=== PATIENT | male | born 1950 | race Caucasian/White ===

== ENCOUNTER 2019-03-04 06:23 | Day surgery (SDC) | payer MEDICARE, BC ==
[2019-03-03 12:58] VITALS: BMI 27.1
[2019-03-04] MEDS ORDERED: Midazolam HCl 2 mg/2 ml Vial ONE (06:44)
[2019-03-04] MEDS ORDERED: Lidocaine 1% (PF) 30 ML VIAL ONE (06:44)
[2019-03-04 06:59] LABS: #Basophils 0.1 thou/uL (0.0-0.2); #Eosinphils 0.2 thou/uL (0.0-0.7); #Monocytes 0.7 thou/uL (0.11-0.59); #Neutrophils 3.2 thou/uL (1.40-6.50); %Eosinophils 3.8 % (0.0-10.0); %Lymphocytes 32.2 % (21.0-51.0); Hemoglobin 15.9 g/dL (14.0-18.0); Mean Corpuscular HGB CONC 35.7 g/dL (32.0-36.0); Mean Corpuscular Hemoglobin 30.8 pg (27.0-31.0); Mean Corpuscular Volume 86.2 fL (78.0-98.0); Mean Platelet Volume 6.6 fL (7.4-10.4); Platelet Count 277 thou/uL (130-400); RBC Distribution Width 11.6 % (11.5-14.5); Red Blood Cell (RBC) Count 5.18 mill/uL (4.70-6.10); White Blood Cell (WBC) Count 6.1 thou/uL (4.8-10.8)
[2019-03-04] MEDS ORDERED: Diazepam 5 MG TAB ONE (07:15)
[2019-03-04] MEDS ORDERED: Diazepam 5 MG TAB PO SCH (07:30)
[2019-03-04] MEDS ORDERED: Sodium Chloride 0.9% 1,000 ML IV SCH (07:30)
--- NOTE | 2019-03-04 08:16 | RAD ---
2 view chest: 03/04/2019 COMPARISON: None HISTORY: Preoperative patient FINDINGS: There is a small nodular density in the mid right lung zone measuring 5-6 mm, suggesting a granuloma. No pneumothorax or pleural fluid. No focal consolidation or alveolar edema. IMPRESSION: No acute findings.
[2019-03-04] MEDS ORDERED: Iopamidol 370 76% 100 ML VIAL ONE (15:08)
--- NOTE | 2019-03-04 19:22 | DIS ---
DATE OF ADMISSION: 03/04/2019 DATE OF DISCHARGE: 03/04/2019 DISCHARGE DIAGNOSES: 1. Coronary artery disease. 2. Dyslipidemia. HISTORY: This is a pleasant 68-year-old gentleman who presents for evaluation of an abnormal stress test. The patient has no known cardiac history. He has a history of intolerance to lipid-lowering medication. The patient underwent a routine exercise treadmill test. He was noted to have significant ST depression and sent for further evaluation. The patient denies having any type of chest discomfort. HOSPITAL COURSE: On 03/03/2019, the patient underwent a left heart catheterization. He was found to have normal left ventricular systolic function, estimated ejection of 55% to 60%. The left main artery had a 40% stenosis. The left anterior descending artery had a 75% proximal stenosis. The left circumflex artery had a 90% mid stenosis. Right coronary artery is 70% proximal stenosis and a 90% mid stenosis. The patient underwent a consultation by Cardiovascular Surgery. It was recommended the patient to undergo coronary artery bypass graft surgery next week. The patient was discharged in stable condition. He has been told to avoid significant physical exertion. The patient will be treated with aspirin. He has also been treated with Repatha for his marked dyslipidemia. DISCHARGE MEDICATIONS: 1. Aspirin 81 daily. 2. Repatha 140 mg b.i.d. 3. Nitroglycerin sublingual p.r.n. Job ID: [id number]
--- NOTE | 2019-03-05 22:09 | CON ---
DATE OF CONSULTATION: HISTORY OF PRESENT ILLNESS: This is a previously healthy 68-year-old who has no real complaints, who underwent a stress test by Dr. Barclay, which was abnormal and was referred for cardiac catheterization performed by Dr. Duggan showing significant coronary disease. He has a long history of dyslipidemia, but has been unable to tolerate statin therapy without severe side effects. PAST MEDICAL HISTORY: Otherwise not significant. PAST SURGICAL HISTORY: Includes an appendectomy. FAMILY HISTORY: Father had a bypass. SOCIAL HISTORY: He is a nonsmoker. He is , accompanied by his and other family members. He currently does farm and ranch work and his states that he spends the whole day out working. PHYSICAL EXAMINATION: GENERAL: He is a gentleman, looking younger than his stated age. NECK: No carotid bruits. LUNGS: Clear to auscultation. CARDIAC: Regular rate and rhythm. No murmurs. ABDOMEN: Soft and nontender. No masses. EXTREMITIES: He has palpable pedal pulses bilaterally. He has no peripheral edema. His left arm is nondominant and he has slow refill on Jelani test at the bedside. LABORATORY DATA: Laboratory values are significant for normal creatinine, normal hemoglobin. Cholesterol level is not currently available. ASSESSMENT AND PLAN: The patient with multilevel coronary disease and he is interested in pursuing surgical intervention and we will plan on doing this next week. Job ID: [id number]
== END 2019-03-04 14:29 | disposition home or self-care (01) ==
LOC: CCL 06:23
PROVIDERS: ATTEND Internal Medicine Cardiovascular Disease
PROC: 4A023N7 Measurement of Cardiac Sampling and Pressure, Left Heart, Percutaneous Approach (ICD-10-PCS; principal; 2019-03-04)
PROC: B2111ZZ Fluoroscopy of Multiple Coronary Arteries using Low Osmolar Contrast (ICD-10-PCS; 2019-03-04)
DX: I25.10 Atherosclerotic heart disease of native coronary artery without angina pectoris (principal); E78.5 Hyperlipidemia, unspecified; Z79.82 Long term (current) use of aspirin; Z79.899 Other long term (current) drug therapy; Z88.8 Allergy status to other drugs, medicaments and biological substances
CPT/HCPCS: 71046; 85025; 93458; 99152; J1644; J2001; J2250; Q9967

== ENCOUNTER 2019-03-09 08:21 | Outpatient (CLI) | payer MEDICARE, BC ==
--- NOTE | 2019-03-11 16:44 | EKG ---
Test Reason : Blood Pressure : / mmHG Vent. Rate : 053 BPM Atrial Rate : 053 BPM P-R Int : 134 ms QRS Dur : 102 ms QT Int : 428 ms P-R-T Axes : 061 027 054 degrees QTc Int : 401 ms Sinus bradycardia Incomplete right bundle branch block Borderline ECG Confirmed by WINTER YOUNGBLOOD ([id number]) on 03/11/2019 4:43:42 PM Referred By: IRINA Confirmed By:WINTER YOUNGBLOOD
== END 2019-03-09 08:22 | disposition home or self-care (01) ==
LOC: LABBT 08:21 → EDSTATUS 08:30
PROVIDERS: ATTEND Thoracic Surgery (Cardiothoracic Vascular Surgery)
DX: Z01.818 Encounter for other preprocedural examination (principal)
CPT/HCPCS: 93005; 93010

== ENCOUNTER 2019-03-10 05:47 | Inpatient (IN) | payer MEDICARE, BC ==
[2019-03-10] MEDS ORDERED: Albumin 5% 500 ML ONE (06:28)
[2019-03-10] MEDS ORDERED: Midazolam HCl 5 mg/5 ml Vial ONE (06:36)
[2019-03-10] MEDS ORDERED: Vecuronium 10 MG VIAL ONE ×2 (06:36→10:41)
[2019-03-10] MEDS ORDERED: Midazolam HCl 2 mg/2 ml Vial ONE (06:36)
[2019-03-10] MEDS ORDERED: Fentanyl 100 MCG/2 ML VIAL ONE ×2 (06:36→21:20)
[2019-03-10] MEDS ORDERED: Dexmedetomidine 200 MCG/2 ML VIAL ONE (06:36)
[2019-03-10] MEDS ORDERED: Heparin 10,000 UNITS/1 ML VIAL 30,000 UNITS in Sodium Chloride 0.9% 1,000 ML FS SCH (06:45)
[2019-03-10] MEDS ORDERED: Magnesium 5 GM/10 ML VIAL ONE (10:41)
[2019-03-10] MEDS ORDERED: Heparin 30,000 units/30 ml VIAL ONE (10:41)
[2019-03-10] MEDS ORDERED: Papaverine 60 MG/2 ML VIAL ONE (10:41)
[2019-03-10] MEDS ORDERED: PHENYLEPHRINE-NS 100 MCG/ML 10 ML SYRINGE ONE (10:41)
[2019-03-10] MEDS ORDERED: Ondansetron PF 4 MG/2 ML Vial ONE (10:41)
[2019-03-10] MEDS ORDERED: Sodium Bicarb 50 MEQ/50 ML VIAL ONE (10:41)
[2019-03-10] MEDS ORDERED: Aminocaproic Acid 5 GM/20 ML VIAL ONE (10:41)
[2019-03-10] MEDS ORDERED: Cardioplegic Soln 1,000 ML BAG ONE (10:41)
[2019-03-10] MEDS ORDERED: ePHEDrine 50 MG/ML VIAL ONE (10:41)
[2019-03-10] MEDS ORDERED: Heparin 5,000 UNITS/ML VIAL ONE (10:41)
[2019-03-10] MEDS ORDERED: Mannitol 12.5 GM/50 ML ONE (10:41)
[2019-03-10] MEDS ORDERED: Potassium Chloride 60 MEQ/30 ML VIAL ONE (10:41)
[2019-03-10] MEDS ORDERED: Ketorolac Tromethamine 30 MG/ML VIAL ONE (10:41)
[2019-03-10] MEDS ORDERED: Thrombin 5000 UNITS/5 ML VIAL ONE (10:41)
[2019-03-10] MEDS ORDERED: Protamine Sulfate 250 MG/25 ML VIAL ONE (10:41)
[2019-03-10] MEDS ORDERED: Glycopyrrolate 0.2 MG/ML 5 ML SYRINGE ONE (10:41)
[2019-03-10] MEDS ORDERED: Nitroglycerin 50 MG/250 ML BOT ONE (10:41)
[2019-03-10] MEDS ORDERED: Calcium Chloride 1 GM/10 ML Abboject SYRINGE ONE (10:41)
[2019-03-10] MEDS ORDERED: Lidocaine 2% PF 100 mg/5 ml Syringe ONE (10:41)
[2019-03-10] MEDS ORDERED: Dexamethasone 20 MG/5 ML VIAL ONE (10:41)
[2019-03-10] MEDS ORDERED: Bisacodyl 5 MG TAB PO PRN (12:25)
[2019-03-10] MEDS ORDERED: Promethazine HCl 25 MG/ML VIAL IM PRN (12:25)
[2019-03-10] MEDS ORDERED: Guaifenesin DM 100-10/5 ML UDCUP PO PRN (12:25)
[2019-03-10] MEDS ORDERED: Ondansetron PF 4 MG/2 ML Vial IVP PRN (12:25)
[2019-03-10] MEDS ORDERED: Post-Op Insulin Drip Protocol IVPB ONE (12:25)
[2019-03-10] MEDS ORDERED: Nitroglycerin 50 MG/250 ML BOT 250 ML IVPB PRN (12:25)
[2019-03-10] MEDS ORDERED: hydrALAZINE 20 MG/ML VIAL SLOW IVP PRN (12:25)
[2019-03-10] MEDS ORDERED: niCARdipine 25 MG in Sodium Chloride 0.9% 250 ML 240 ML IVPB PRN (12:25)
[2019-03-10] MEDS ORDERED: Acetaminophen 325 MG TAB PO PRN (12:25)
[2019-03-10] MEDS ORDERED: Mag-Al 1200 mg/1200 mg/30 ML UDCUP PO PRN (12:25)
[2019-03-10] MEDS ORDERED: DOPamine 400 MG/D5W 250 ML 250 ML IVPB PRN (12:25)
[2019-03-10] MEDS ORDERED: Fentanyl 100 MCG/2 ML VIAL SLOW IVP PRN (12:25)
[2019-03-10] MEDS ORDERED: Morphine 2 MG/ML SYRINGE SLOW IVP PRN (12:25)
[2019-03-10] MEDS ORDERED: Hetastarch 6% 500 ML 500 ML IVPB PRN (12:25)
[2019-03-10] MEDS ORDERED: Bisacodyl 10 MG SUPP PR PRN (12:25)
[2019-03-10] MEDS ORDERED: HUMULIN R 100 UNITS in Sodium Chloride 0.9% 100 ML IVPB SCH (12:32)
[2019-03-10] MEDS ORDERED: Dextrose 5% in Water 1,000 ML IV PRN (12:32)
[2019-03-10] MEDS ORDERED: Dextrose 50% Abboject 50 ML SYRINGE SLOW IVP PRN (12:32)
[2019-03-10 12:34] LABS: #Eosinphils 0.1 thou/uL (0.0-0.7); #Lymphocytes 1.2 thou/uL (1.20-3.40); #Monocytes 0.7 thou/uL (0.11-0.59); #Neutrophils 10.7 thou/uL (1.40-6.50); %Basophils 0.2 % (0.0-1.0); %Eosinophils 0.6 % (0.0-10.0); %Lymphocytes 9.1 % (21.0-51.0); %Monocytes 5.6 % (0.0-10.0); %Neutrophils 84.5 % (42.0-75.0); Hemoglobin 12.1 g/dL (14.0-18.0); Mean Corpuscular HGB CONC 35.4 g/dL (32.0-36.0); Mean Corpuscular Hemoglobin 30.3 pg (27.0-31.0); Mean Corpuscular Volume 85.7 fL (78.0-98.0); Mean Platelet Volume 6.6 fL (7.4-10.4); Platelet Count 180 thou/uL (130-400); RBC Distribution Width 11.3 % (11.5-14.5); White Blood Cell (WBC) Count 12.7 thou/uL (4.8-10.8)
[2019-03-10 12:41] LABS: INR-International Normal Ratio 1.3; PTT 29.6 SEC (22.9-36.1)
[2019-03-10] MEDS: Insulin Regular 300 UNITS/3 ML VIAL SC PRN (12:41)
[2019-03-10] MEDS: Lactated Ringer's 1,000 ML IV SCH (12:44)
[2019-03-10] MEDS ORDERED: Magnesium 2 GM/50 ML 2 GM in Premix Bag 1 BAG IVPB SCH (12:45)
[2019-03-10] MEDS: Fentanyl 100 MCG/2 ML VIAL SLOW IVP PRN ×5 (12:48→21:26)
--- NOTE | 2019-03-10 13:15 | RAD ---
CHEST 1 VIEW: Date: 03/10/19 INDICATION: Status post open heart surgery. COMPARISON: Prior PA and lateral chest dated 03/04/19. FINDINGS: There is a right subclavian central venous catheter in place. There is a midline mediastinal drain. T here are bilateral thoracostomy drains. There is subsegmental atelectasis within the perihilar region s. No pneumothorax is evident. Heart size is mildly prominent. No acute osseous abnormality is noted. IMPRESSION: 1. Interval post CABG change. 2. Tubes and lines as above. 3. No pneumothorax. POS: TPC
[2019-03-10 13:49] LABS: Anion Gap 9 mmol/L (10-20); BUN (Urea Nitrogen) 11 mg/dL (8.4-25.7); Calc. Creatinine Clearance 108 mL/min (70-130); Carbon Dioxide 23 mmol/L (23-31); Chloride 111 mmol/L (98-107); Estimated GFR-MDRD Greater than 90; Glucose 130 mg/dL (80-115); Potassium 3.8 mmol/L (3.5-5.1); Sodium 139 mmol/L (136-145)
[2019-03-10] MEDS: CEFAZOLIN 2 GM in Premix Bag 1 BAG IVPB SCH ×2 (13:54→21:25)
[2019-03-10] MEDS: Potassium Chloride 20 MEQ/100 ML PREMIX BAG IVPB PRN (14:54)
[2019-03-10 18:21] LABS: Hemoglobin 11.5 g/dL (14.0-18.0)
[2019-03-10] MEDS: Ketorolac Tromethamine 30 MG/ML VIAL IVP SCH ×2 (18:24→23:28)
[2019-03-10] MEDS: Famotidine/PF 20 mg/2ml Vial SLOW IVP SCH (21:29)
[2019-03-11] MEDS: Fentanyl 100 MCG/2 ML VIAL SLOW IVP PRN ×2 (00:33→03:37)
[2019-03-11] MEDS: Lactated Ringer's 1,000 ML IV SCH ×2 (00:50→15:51)
[2019-03-11 05:10] VITALS: BMI 28.4
[2019-03-11 05:12] LABS: #Lymphocytes 1.1 thou/uL (1.20-3.40); #Monocytes 1.5 thou/uL (0.11-0.59); #Neutrophils 9.7 thou/uL (1.40-6.50); %Basophils 0.2 % (0.0-1.0); %Eosinophils 0.1 % (0.0-10.0); %Lymphocytes 9.2 % (21.0-51.0); %Monocytes 11.8 % (0.0-10.0); %Neutrophils 78.8 % (42.0-75.0); Hemoglobin 11.1 g/dL (14.0-18.0); Mean Corpuscular HGB CONC 34.9 g/dL (32.0-36.0); Mean Corpuscular Hemoglobin 30.4 pg (27.0-31.0); Mean Corpuscular Volume 87.3 fL (78.0-98.0); Platelet Count 220 thou/uL (130-400); RBC Distribution Width 11.4 % (11.5-14.5); Red Blood Cell (RBC) Count 3.63 mill/uL (4.70-6.10); White Blood Cell (WBC) Count 12.3 thou/uL (4.8-10.8)
[2019-03-11 05:31] LABS: Anion Gap 11 mmol/L (10-20); BUN (Urea Nitrogen) 12 mg/dL (8.4-25.7); Calc. Creatinine Clearance 110 mL/min (70-130); Calcium 8.1 mg/dL (7.8-10.44); Carbon Dioxide 22 mmol/L (23-31); Chloride 109 mmol/L (98-107); Estimated GFR-MDRD 90; Glucose 122 mg/dL (80-115); Potassium 3.8 mmol/L (3.5-5.1); Sodium 138 mmol/L (136-145)
[2019-03-11] MEDS: CEFAZOLIN 2 GM in Premix Bag 1 BAG IVPB SCH (05:38)
[2019-03-11] MEDS: Ketorolac Tromethamine 30 MG/ML VIAL IVP SCH ×3 (05:39→17:13)
[2019-03-11] MEDS: Potassium Chloride 20 MEQ/100 ML PREMIX BAG IVPB PRN (06:58)
[2019-03-11] MEDS: Famotidine/PF 20 mg/2ml Vial SLOW IVP SCH ×2 (08:44→20:01)
--- NOTE | 2019-03-11 08:44 | RAD ---
CHEST 1 VIEW: HISTORY: Open heart surgery. COMPARISON: Radiograph of prior day. FINDINGS: Central venous catheter tip sits at the inferior SVC. Mediastinal drains are similar. No pneumothor ax. No significant left effusion. Trace right effusion. Atelectatic changes of the lung bases. IMPRESSION: Expected postoperative findings without complication. POS: CET
[2019-03-11] MEDS ORDERED: Aspirin 325 MG TAB PO SCH (09:00)
[2019-03-11] MEDS: HYDROcodone/Acetaminophen 5/325 mg Tablet PO PRN ×2 (09:46→21:15)
--- NOTE | 2019-03-11 10:43 | OP ---
DATE OF PROCEDURE: 03/10/2019 PREOPERATIVE DIAGNOSIS: Coronary artery disease. POSTOPERATIVE DIAGNOSIS: Coronary artery disease. PROCEDURE PERFORMED: Coronary artery bypass graft x4, left internal mammary artery to a 1.5 mm left anterior descending; saphenous vein graft, good quality, to a 3 mm right coronary artery and a 1.5 mm distal circ; left radial, good quality, to a 1.5 to 2 mm obtuse marginal. NURSE ORTHOPAEDIC: Asim Flores MD. TRANSFUSION: None. DESCRIPTION OF PROCEDURE: After adequate anesthesia had been obtained, the patient was prepped and draped. Initially, I harvested the left radial artery after ensuring good collateral flow by Jelani's testing and plethysmography. The vessel was then harvested and the wound was closed in layers. I then turned my attention to the sternotomy, which was performed, entering the right pleura with the saw. Left internal mammary artery was harvested, and following this, the patient was heparinized as endovascular vein harvest by Dr. Flores had been completed from the left thigh. Following aortic and right atrial cannulation, cardiopulmonary bypass was begun. Vessels were inspected for grafting. The aorta was crossclamped and a liter of cold blood cardioplegia given through the aortic root. Four distal anastomoses were then completed, following which the cross-clamp was removed and the partial occluding clamp placed and 2 proximal venous anastomosis performed on the aortic root and marked with rings. To the hidalgo of the OM graft, the radial artery placed. Distal anastomoses were then checked and sutures were required. Following this, the patient was weaned from cardiopulmonary bypass. Cannula was removed and the aortic cannulation site was secured with a 4-0 Prolene suture. Suture lines were hemostatic, following which mediastinal and bilateral pleural drains were placed. Sternum was then reapproximated with #7 interrupted wire using vancomycin paste on the sternal edges, platelet-rich blood, and platelet poor plasma. Subcutaneous tissue and skin were closed in layers. The patient is to be taken to the ICU in guarded condition. Job ID: [id number]
[2019-03-11] MEDS: Polyethylene Glycol 3350 17 GM Packet PO SCH (12:31)
[2019-03-11] MEDS ORDERED: Ubidecarenone 50 MG CAP PO SCH (14:45)
--- NOTE | 2019-03-11 17:19 | EKG ---
Test Reason : POST CABG Blood Pressure : / mmHG Vent. Rate : 060 BPM Atrial Rate : 060 BPM P-R Int : 156 ms QRS Dur : 088 ms QT Int : 440 ms P-R-T Axes : 066 -17 050 degrees QTc Int : 440 ms Normal sinus rhythm RSR' or QR pattern in V1 suggests right ventricular conduction delay Nonspecific ST abnormality Abnormal ECG Confirmed by WINTER YOUNGBLOOD ([id number]) on 03/11/2019 5:19:04 PM Referred By: MARGARITO Confirmed By:WINTER YOUNGBLOOD
[2019-03-11] MEDS: Insulin Regular 300 UNITS/3 ML VIAL SC PRN (19:55)
[2019-03-12] MEDS: Ketorolac Tromethamine 30 MG/ML VIAL IVP SCH ×2 (00:02→05:23)
[2019-03-12] MEDS: HYDROcodone/Acetaminophen 5/325 mg Tablet PO PRN ×3 (04:42→20:31)
[2019-03-12] MEDS: Lactated Ringer's 1,000 ML IV SCH (04:43)
[2019-03-12 05:41] LABS: #Eosinphils 0.1 thou/uL (0.0-0.7); #Lymphocytes 1.9 thou/uL (1.20-3.40); #Monocytes 1.3 thou/uL (0.11-0.59); #Neutrophils 6.8 thou/uL (1.40-6.50); %Basophils 0.2 % (0.0-1.0); %Eosinophils 0.5 % (0.0-10.0); %Neutrophils 67.4 % (42.0-75.0); Hemoglobin 9.6 g/dL (14.0-18.0); Mean Corpuscular HGB CONC 35.1 g/dL (32.0-36.0); Mean Corpuscular Volume 88.2 fL (78.0-98.0); Mean Platelet Volume 7.4 fL (7.4-10.4); Platelet Count 157 thou/uL (130-400); RBC Distribution Width 11.4 % (11.5-14.5); White Blood Cell (WBC) Count 10.1 thou/uL (4.8-10.8)
[2019-03-12 06:00] LABS: Anion Gap 10 mmol/L (10-20); BUN (Urea Nitrogen) 16 mg/dL (8.4-25.7); Calc. Creatinine Clearance 92 mL/min (70-130); Calcium 8.5 mg/dL (7.8-10.44); Carbon Dioxide 26 mmol/L (23-31); Chloride 105 mmol/L (98-107); Estimated GFR-MDRD 73; Glucose 107 mg/dL (80-115); Potassium 4.2 mmol/L (3.5-5.1); Sodium 137 mmol/L (136-145)
[2019-03-12] MEDS ORDERED: Mag-Al 1200 mg/1200 mg/30 ML UDCUP PO PRN (08:41)
[2019-03-12] MEDS ORDERED: Ondansetron PF 4 MG/2 ML Vial IVP PRN (08:41)
[2019-03-12] MEDS ORDERED: Guaifenesin DM 100-10/5 ML UDCUP PO PRN (08:41)
[2019-03-12] MEDS ORDERED: Nitroglycerin 0.4 MG TAB (25 Tab Bottle) SL PRN (08:41)
[2019-03-12] MEDS ORDERED: Mineral Oil ENEMA PR PRN (08:41)
[2019-03-12] MEDS ORDERED: Bisacodyl 10 MG SUPP PR PRN (08:41)
[2019-03-12] MEDS ORDERED: Bisacodyl 5 MG TAB PO PRN (08:41)
[2019-03-12] MEDS ORDERED: Potassium Chloride 10 MEQ TAB PO SCH (09:00)
[2019-03-12] MEDS: Polyethylene Glycol 3350 17 GM Packet PO SCH (09:00)
[2019-03-12] MEDS: Furosemide 40 MG TAB PO SCH (09:14)
[2019-03-12] MEDS: Aspirin 325 mg Enteric Coated Tablet PO SCH (09:14)
[2019-03-12] MEDS: Ubidecarenone 50 MG CAP PO SCH (09:23)
--- NOTE | 2019-03-12 09:41 | RAD ---
CHEST 1 VIEW: INDICATION: Status post open heart surgery. COMPARISON: Prior exam dated 03/10/2019. IMPRESSION: Bibasilar subsegmental atelectasis persists. Left-sided thoracostomy tube has been removed. Right s ubclavian central venous catheter is stable. Midline sternotomy changes are stable. No pneumothorax is evident. POS: OFF
[2019-03-13] MEDS: HYDROcodone/Acetaminophen 5/325 mg Tablet PO PRN ×3 (04:56→21:28)
[2019-03-13] MEDS: Ubidecarenone 50 MG CAP PO SCH (08:21)
[2019-03-13] MEDS: Aspirin 325 mg Enteric Coated Tablet PO SCH (08:22)
[2019-03-13] MEDS: Furosemide 40 MG TAB PO SCH (08:22)
[2019-03-13] MEDS: Potassium Chloride 10 MEQ TAB PO SCH (08:23)
[2019-03-13] MEDS: Polyethylene Glycol 3350 17 GM Packet PO SCH (08:24)
[2019-03-13] MEDS: Acetaminophen 325 MG TAB PO PRN (12:44)
[2019-03-13] MEDS ORDERED: Metoprolol Tartrate 5 MG/5 ML VIAL ONE (16:57)
[2019-03-13] MEDS ORDERED: Metoprolol Tartrate 5 MG/5 ML VIAL IVP SCH (17:02)
--- NOTE | 2019-03-13 17:17 | PDOC.EVN ---
Event Note - Event Note Event Note: Code [place] called for elevated heart rate. Noted with Afib with RVR on 12- lead. Asymptomatic, denies chest pain,SOB. BP 133/79, rate variable, 140s- 170s. Metoprolol 5mg IVP, BP now 126/79, rate 130s-170s. Add diltiazem bolus & gtt. Discussed with patient, family, all questions asked were answered. Dr. Wilkerson at bedside to evaluate patient.
[2019-03-13] MEDS: Diltiazem 125 MG in Sodium Chloride 0.9% 100 ML IVPB SCH (17:37)
--- NOTE | 2019-03-13 17:45 | PRG ---
DATE OF SERVICE: 03/13/2019 This is an addition to note handwritten and on the chart by Radha Resee NP. The patient did develop atrial fibrillation with a rapid rate, rate of 200. The patient was received metoprolol 5 mg IV, then beginning Cardizem drip. ASSESSMENT: 1. Status post bypass surgery. 2. Atrial fibrillation with a rapid rate. PLAN: 1. Intravenous metoprolol. 2. Intravenous diltiazem. 3. We will also give him higher doses of oral metoprolol. Job ID: [id number]
[2019-03-14] MEDS: Diltiazem 125 MG in Sodium Chloride 0.9% 100 ML IVPB SCH (04:09)
[2019-03-14] MEDS: Potassium Chloride 10 MEQ TAB PO SCH (09:57)
[2019-03-14] MEDS: Aspirin 325 mg Enteric Coated Tablet PO SCH (09:58)
[2019-03-14] MEDS: Ubidecarenone 50 MG CAP PO SCH (09:58)
[2019-03-14] MEDS: Polyethylene Glycol 3350 17 GM Packet PO SCH (09:58)
[2019-03-14] MEDS: Furosemide 40 MG TAB PO SCH (09:58)
[2019-03-14] MEDS: HYDROcodone/Acetaminophen 5/325 mg Tablet PO PRN ×2 (10:03→20:17)
[2019-03-14] MEDS: Acetaminophen 325 MG TAB PO PRN (10:05)
[2019-03-14] MEDS ORDERED: Diltiazem 125 MG in Sodium Chloride 0.9% 100 ML IVPB SCH (10:46)
--- NOTE | 2019-03-14 11:14 | PRG ---
DATE OF SERVICE: 03/14/2019 SUBJECTIVE: Mr. Devine is doing better today. Yesterday, he had atrial fibrillation with a very rapid rate. The rate sometime was going over 200 beats per minute. He was given intravenous diltiazem and beta-hayden and he is subsequently converted back to sinus rhythm. He feels much better today. He has no chest pain. OBJECTIVE: VITAL SIGNS: His blood pressure is 136/71; pulse 70, it is sinus. LUNGS: Clear. CARDIAC: Normal S1. Normal S2. ABDOMEN: Soft and nontender. ASSESSMENT: 1. Status post bypass surgery. 2. Status post episode of atrial fibrillation with a rapid ventricular response. PLAN: 1. Increase beta-hayden. 2. Reduce diltiazem. Should be able to come off the diltiazem tomorrow morning. We will leave it on for now as when he went into atrial fibrillation, the rate was very rapid. Job ID: [id number]
[2019-03-15] MEDS: Acetaminophen 325 MG TAB PO PRN ×2 (07:32→14:23)
[2019-03-15] MEDS: Potassium Chloride 10 MEQ TAB PO SCH (07:32)
[2019-03-15] MEDS ORDERED: Aspirin 325 mg Enteric Coated Tablet PO SCH (08:24)
[2019-03-15] MEDS: Ubidecarenone 50 MG CAP PO SCH (08:59)
[2019-03-15] MEDS ORDERED: Aspirin 81 mg Enteric Coated Tablet PO SCH (09:00)
[2019-03-15] MEDS: Polyethylene Glycol 3350 17 GM Packet PO SCH (09:00)
[2019-03-15] MEDS ORDERED: Apixaban 5 MG TAB PO SCH (09:00)
--- NOTE | 2019-03-15 12:08 | DIS ---
DATE OF ADMISSION: 03/10/2019 DATE OF DISCHARGE: 03/15/2019 HOSPITAL COURSE: This is a gentleman, who underwent cardiac catheterization prior to this admission and was found to have significant coronary artery disease. He was taken to the operating room on the day of admission, where he underwent four-vessel bypass grafting to the LAD, OM was one and two in the right coronary artery. He received no transfusions. He did have transient atrial fibrillation with rapid ventricular response up to about 200 as well as flutter. This was controlled with Cardizem and beta hayden. Otherwise, he was ambulating in the halls well and had not having any difficulties. He will be discharged home on metoprolol-XL 50 a day, Crestor 10 a day, Co-Q one a day, and resume his home medicines of aspirin. He will also receive a prescription for [place]. Discharge and followup instructions were given. Job ID: [id number]
[2019-03-15 12:36] VITALS: BP 133/74; TEMP 98.8
[2019-03-15] MEDS: HYDROcodone/Acetaminophen 5/325 mg Tablet PO PRN (12:42)
--- NOTE | 2019-03-15 16:49 | EKG ---
Test Reason : Blood Pressure : / mmHG Vent. Rate : 177 BPM Atrial Rate : 187 BPM P-R Int : 000 ms QRS Dur : 090 ms QT Int : 272 ms P-R-T Axes : 000 -03 084 degrees QTc Int : 466 ms Atrial fibrillation with rapid ventricular response Nonspecific ST and T wave abnormality Abnormal ECG Confirmed by WINTER YOUNGBLOOD ([id number]) on 03/15/2019 4:48:31 PM Referred By: Confirmed By:WINTER YOUNGBLOOD
== END 2019-03-15 16:40 | disposition home or self-care (01) | DRG 236 ==
LOC: SURG A 05:47 → CCU 11:09 → 2NO 03-12 12:00
PROVIDERS: ADMIT Thoracic Surgery (Cardiothoracic Vascular Surgery); ATTEND Thoracic Surgery (Cardiothoracic Vascular Surgery)
PROC: 021109W Bypass Coronary Artery, Two Arteries from Aorta with Autologous Venous Tissue, Open Approach (ICD-10-PCS; principal; 2019-03-10)
PROC: 0210099 Bypass Coronary Artery, One Artery from Left Internal Mammary with Autologous Venous Tissue, Open Approach (ICD-10-PCS; 2019-03-10)
PROC: 06BQ4ZZ Excision of Left Saphenous Vein, Percutaneous Endoscopic Approach (ICD-10-PCS; 2019-03-10)
PROC: 03BC4ZZ Excision of Left Radial Artery, Percutaneous Endoscopic Approach (ICD-10-PCS; 2019-03-10)
PROC: 5A1221Z Performance of Cardiac Output, Continuous (ICD-10-PCS; 2019-03-10)
PROC: 02100AW Bypass Coronary Artery, One Artery from Aorta with Autologous Arterial Tissue, Open Approach (ICD-10-PCS; 2019-03-10)
DX: I25.10 Atherosclerotic heart disease of native coronary artery without angina pectoris (principal); E78.5 Hyperlipidemia, unspecified; Z90.49 Acquired absence of other specified parts of digestive tract; I48.91 Unspecified atrial fibrillation; Z79.82 Long term (current) use of aspirin; Z79.899 Other long term (current) drug therapy
CPT/HCPCS: 36415; 36416; 36430; 71045; 80048; 82947; 85025; 85610; 85730; 86850; 86900; 86901; 93005; 93010; 93798; J0690; J1100; J1265; J1642; J1644; J1815; J1885; J2001; J2150; J2250; J2405; J2440; J2720; J3010; J3370; J3475; J3480; J3490; J7050; P9045; S0017; S0028

== ENCOUNTER 2023-08-12 06:40 | Day surgery (SDC) | payer MEDICARE, BC ==
[2023-08-11 14:44] VITALS: BMI 26.4
[~2023-08-12 06:40] MED LIST: EPINEPHrine 0.3 MG in Ophthalmic Irrigation Solution 500 ML IRR SCH
[2023-08-12] MEDS ORDERED: PHENYLephrine 2.5% Ophth Soln 15 ml Bottle ONE (06:56)
[2023-08-12] MEDS ORDERED: Cyclopentolate 1% Opth Drop 2 ML BOT ONE (06:56)
[2023-08-12] MEDS ORDERED: Lidocaine 4% PF 5 ML AMP ONE (08:55)
[2023-08-12] MEDS ORDERED: CEFAZOLIN 1 GM VIAL ONE (08:55)
[2023-08-12] MEDS ORDERED: Triamcinolone 40 MG/ML VIAL ONE (08:55)
[2023-08-12] MEDS ORDERED: Lidocaine 1% PF 5 ML VIAL ONE (08:55)
[2023-08-12] MEDS ORDERED: PROPOFOL 200 MG/20 ML VIAL ONE (08:55)
[2023-08-12] MEDS ORDERED: Maxitrol 0.1% Opth Oint 3.5 GM TUBE ONE (08:55)
[2023-08-12] MEDS ORDERED: Bupivacaine 0.75% 10 ML VIAL ONE (08:55)
== END 2023-08-12 10:15 | disposition home or self-care (01) ==
LOC: SDC 06:40
PROVIDERS: ATTEND Ophthalmology Retina Specialist
PROC: 08T43ZZ Resection of Right Vitreous, Percutaneous Approach (ICD-10-PCS; principal; 2023-08-12)
DX: H33.001 Unspecified retinal detachment with retinal break, right eye (principal)
CPT/HCPCS: 67025; J0171; J0690; J2704; J3301; J3490

== ENCOUNTER 2025-01-02 12:15 | Inpatient (IN) | payer MEDICARE, BC ==
[~2025-01-02 12:15] MED LIST changes: -EPINEPHrine 0.3 MG in Ophthalmic Irrigation Solution 500 ML IRR SCH; +Iopamidol-370 76% 500 ML MDV (1 ML CHARGE) ONE
[2025-01-02 13:04] LABS: #Basophils 0.05 10x3/uL (0.0-0.2); #Eosinophils 0.36 10x3/uL (0.0-0.7); #Monocytes 0.82 10x3/uL (0.11-0.59); #Neutrophils 4.22 10x3/uL (1.40-6.50); %Basophils 0.7 % (0.0-1.0); %Eosinophils 4.9 % (0.0-10.0); %Lymphocytes 25.5 % (21.0-51.0); %Monocytes 11.1 % (0.0-10.0); %Neutrophils 57.4 % (42.0-75.0); Hematocrit 37.8 % (42.0-52.0); Mean Corpuscular HGB CONC 34.4 g/dL (32.0-36.0); Mean Corpuscular Hemoglobin 29.3 pg (27.0-31.0); Mean Corpuscular Volume 85.3 fL (78.0-98.0); Mean Platelet Volume 10.9 fL (7.4-10.4); Platelet Count 214 10x3/uL (130-400); RBC Distribution Width 15.5 % (11.5-14.5); Red Blood Cell (RBC) Count 4.43 mill/uL (4.70-6.10); White Blood Cell (WBC) Count 7.36 10x3/uL (4.8-10.8)
[2025-01-02 13:17] LABS: INR-International Normal Ratio 1.2; PTT 30.4 sec (22.9-36.1); Prothrombin Time 15.2 sec (12.0-14.7)
[2025-01-02 13:20] LABS: ALT (SGPT) 576 U/L (Less than 45); AST (SGOT) 367 U/L (11-34); Albumin 3.4 g/dL (3.1-4.5); Alkaline Phosphatase 721 U/L (40-110); Anion Gap 14 mmol/L (10-20); BUN (Urea Nitrogen) 15 mg/dL (8.4-25.7); Bilirubin, Direct 13.8 mg/dL (0.1-0.3); Bilirubin, Total 21.2 mg/dL (0.3-1.2); CK (CPK) 53 U/L (30-200); Calc. Creatinine Clearance 0 mL/min (70-130); Calcium 9.1 mg/dL (7.8-10.44); Carbon Dioxide 22 mmol/L (23-31); Chloride 104 mmol/L (98-107); Estimated GFR 93; Globulin 2.8 g/dL (2.4-3.5); Glucose 94 mg/dL (83-110); Lipase 26 U/L (8-78); Potassium 3.7 mmol/L (3.5-5.1); Protein, Total 6.2 g/dL (5.8-8.1); Sodium 136 mmol/L (136-145)
[2025-01-02 13:42] LABS: HBsAg Index 0.25 S/CO (0-0.99); Hep A IgM AB NONREACTIVE (NonReactive); Hep A IgM S/CO 0.14 S/CO (0-0.79); Hep B Core IgM Index 0.07 S/CO (0-0.79); Hep B Surf Ag NONREACTIVE S/CO (NonReactive); Hep C IgG Ab NONREACTIVE S/CO (NonReactive); Hep C Index 0.03 S/CO (0-0.79); Hepatitis B Core IgM Abs NONREACTIVE S/CO (NonReactive)
[2025-01-02 14:12] LABS: Bacteria/HPF None Seen HPF (None Seen); Bilirubin 2+ (Negative); Blood, Urine Negative (Negative); CAUTI Indications for Culture Pelvic or flank pain; Clarity Clear (Clear); Glucose, Urine (Dipstick) Normal (Negative); Ketone, Urine Negative (Negative); Leukocyte Negative Leu/uL (Negative); Nitrite Negative (Negative); Protein, Urine (Dipstick) Negative (Neg-Trace); RBC/HPF 0-3 HPF (0-3); Specific Gravity, Urine 1.009 (1.002-1.036); Squamous Epithelial 0-3 HPF (0-3); Urobilinogen Normal mg/dL (Less than 2); WBC/HPF 0-3 HPF (0-3); pH, Urine 5.5 (5.0-9.0)
[2025-01-02 14:15] LABS: Urine Culture Reflex No No
[2025-01-02] MEDS ORDERED: Morphine 2 MG/ML VIAL ONE (15:22)
[2025-01-02] MEDS ORDERED: Ondansetron PF 4 MG/2 ML Vial IVP PRN (17:07)
[2025-01-02] MEDS ORDERED: Morphine 2 MG/ML VIAL SLOW IVP PRN (17:07)
[2025-01-02] MEDS ORDERED: Ondansetron ODT 4 MG TAB PO PRN (17:07)
[2025-01-02] MEDS ORDERED: Electrolyte Replacement Protocol 1 EACH FS SCH (17:15)
[2025-01-02] MEDS: Magnesium 2 GM/50 ML(in water) 2 GM in Premix 1 BAG IVPB SCH (18:29)
[2025-01-02 18:47] VITALS: BMI 25.1
[2025-01-03 06:24] LABS: #Basophils 0.05 10x3/uL (0.0-0.2); #Eosinophils 0.51 10x3/uL (0.0-0.7); #Neutrophils 3.26 10x3/uL (1.40-6.50); %Basophils 0.8 % (0.0-1.0); %Eosinophils 8.1 % (0.0-10.0); %Lymphocytes 26.3 % (21.0-51.0); %Monocytes 12.7 % (0.0-10.0); %Neutrophils 51.9 % (42.0-75.0); Hematocrit 36.9 % (42.0-52.0); Hemoglobin 12.5 g/dL (14.0-18.0); Mean Corpuscular HGB CONC 33.9 g/dL (32.0-36.0); Mean Corpuscular Hemoglobin 29.5 pg (27.0-31.0); Mean Platelet Volume 10.8 fL (7.4-10.4); Platelet Count 201 10x3/uL (130-400); RBC Distribution Width 16.1 % (11.5-14.5); Red Blood Cell (RBC) Count 4.24 mill/uL (4.70-6.10); White Blood Cell (WBC) Count 6.28 10x3/uL (4.8-10.8)
[2025-01-03 06:41] LABS: ALT (SGPT) 521 U/L (Less than 45); AST (SGOT) 351 U/L (11-34); Albumin 3.1 g/dL (3.1-4.5); Alkaline Phosphatase 669 U/L (40-110); Anion Gap 9 mmol/L (10-20); BUN (Urea Nitrogen) 12 mg/dL (8.4-25.7); Bilirubin, Total 20.5 mg/dL (0.3-1.2); Calc. Creatinine Clearance 83 mL/min (70-130); Calcium 8.9 mg/dL (7.8-10.44); Carbon Dioxide 27 mmol/L (23-31); Chloride 106 mmol/L (98-107); Estimated GFR 88; Globulin 2.6 g/dL (2.4-3.5); Glucose 106 mg/dL (83-110); Potassium 4.1 mmol/L (3.5-5.1); Protein, Total 5.7 g/dL (5.8-8.1); Sodium 138 mmol/L (136-145)
[2025-01-03] MEDS ORDERED: Aspirin 81 mg Enteric Coated Tablet PO SCH (09:00)
[2025-01-03] MEDS: Rosuvastatin 20 MG TAB PO SCH (09:33)
[2025-01-03] MEDS: CO Q-10 CAPSULE 100 MG PO SCH (09:33)
[2025-01-03 12:19] VITALS: BP 119/73; TEMP 97.6
[2025-01-03] MEDS ORDERED: Latanoprost 0.005% Ophth Soln 2.5 ml Bottle EA EYE SCH (21:00)
[2025-01-04] MEDS ORDERED: Aspirin 81 mg Enteric Coated Tablet PO SCH (09:00)
== END 2025-01-03 15:32 | disposition home or self-care (01) | DRG 446 ==
LOC: ERS 12:15 → T4-A 15:19
PROVIDERS: ADMIT Internal Medicine; ATTEND Internal Medicine
DX: K83.1 Obstruction of bile duct (principal); I48.91 Unspecified atrial fibrillation; E78.00 Pure hypercholesterolemia, unspecified; Z66 Do not resuscitate; I25.10 Atherosclerotic heart disease of native coronary artery without angina pectoris; Z95.1 Presence of aortocoronary bypass graft; Z90.49 Acquired absence of other specified parts of digestive tract; Z98.890 Other specified postprocedural states; Z79.01 Long term (current) use of anticoagulants; Z79.899 Other long term (current) drug therapy
CPT/HCPCS: 36415; 74177; 74183; 76376; 76705; 80053; 80074; 81001; 82140; 82248; 82550; 83690; 83735; 85025; 85610; 85730; 86850; 86900; 86901; 96374; J2272; J3475; Q9967